=== PATIENT | male | born 1985 | race Two or more races ===

== ENCOUNTER 2024-10-11 17:44 | Emergency (ER) | payer MEDICAID, SELFPAY ==
[2024-10-11 18:22] VITALS: BP 177/94; PULSE 89; RESP 18; TEMP 37; O2SAT 95; BMI 35.9
--- NOTE | 2024-10-11 18:42 | EKG_ITS ---
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
--- NOTE | 2024-10-11 18:43 | XR_ITS ---
Examination: CT brain head without contrast. 2-D sagittal coronal reconstructions Date and time of exam:October 11, 2024, 1929 hours INDICATIONS: Onset headaches beginning 9 days ago CTDI: vol (mGy):48.3 DLP: (mGycm):943 Technique: Multiple CT axial sections of the brain have been obtained, 5 mm slice thickness. Contrast has not been administered. 2-D sagittal, coronal reconstructions have been obtained Low dose protocols were performed. One or more of the following dose reduction techniques were used; automated exposure control, adjustment of the mA and/or KV according to patient size, use of iterative reconstruction technique. Findings: No significant ventricular enlargement. Intra-axial or extra-axial hemorrhage density is not seen. No mass effect or midline shift Basal cisterns are not remarkable. Fourth ventricle is midline. Cranial vault intact. Impression: Negative for acute hemorrhage, mass effect or midline shift Advise clinical correlation and follow up accordingly
--- NOTE | 2024-10-11 18:43 | EDRME_ITS ---
Rapid Medical Screening Exam [facility] Arrival date/time: 10/11/24 17:44 39M with history of HTN (hasn't taken meds for 2 months) presents to ED with 1 day of SOUTH, CP, and SOB. Patient went to clinic and was sent here for elevated BP. Chief Complaint: General Adult/Misc Complain Vital signs: Vital Signs Temperature 98.6 F 10/11/24 18:22 Pulse Rate 89 10/11/24 18:22 Respiratory Rate 18 10/11/24 18:22 Blood Pressure 177/94 H 10/11/24 18:22 Pulse Oximetry (%) 95 10/11/24 18:22 Oxygen Delivery Method Room Air 10/11/24 18:22
--- NOTE | 2024-10-11 18:43 | XR_ITS ---
Examination: PA chest single view TECHNIQUE: Upright PA chest single view Exam date and time: October 11, 2024, 1924 hours INDICATIONS: High blood pressure chest pain beginning 3 days ago. FINDINGS: Normal heart size. No pneumonia or pulmonary edema. Osseous structures are intact IMPRESSION: No active disease
[2024-10-11 19:14] LABS: Basophils % (Auto) 0 % (0-2.5); Eosinophils % (Auto) 0 % (0-10); Hematocrit 46.5 % (41.0-53.0); Hemoglobin 16.3 g/dL (13.5-16.0); Immature Granulocytes % (Auto) 0 % (0-0); Immature Granulocytes Auto 0.01 Thou/mm3 (0.00-0.00); Lymphocytes # (Auto) 1.1 Thou/mm3 (1.0-4.8); Lymphocytes % (Auto) 15 % (10-50); Mean Corpuscular HGB Conc 35.1 g/dl (31.0-37.0); Mean Corpuscular Hemoglobin 30.8 pg (25.0-35.0); Mean Corpuscular Volume 88 fL (80-100); Monocytes # (Auto) 0.4 Thou/mm3 (0.0-0.8); Monocytes % (Auto) 6 % (0-12); Neutrophils # (Auto) 5.8 Thou/mm3 (1.8-7.7); Neutrophils % (Auto) 79 % (37-80); Nucleated Red Blood Cell % 0 /100 WBC (0); Platelet Count 147 Thou/mm3 (140-440); RDW Standard Deviation 41.4 fL (35.1-43.9); White Blood Count 7.4 Thou/mm3 (3.8-10.6)
[2024-10-11 19:40] LABS: Alanine Aminotransferase 36 U/L (10-49); Albumin, Serum 4.7 gm/dL (3.5-5.0); Albumin/Globulin Ratio 1.3 (1.2-2.2); Alkaline Phosphatase 150 U/L (46-116); Anion Gap 11 (7-16); Aspartate Amino Transferase 38 U/L (0-34); BUN/Creatinine Ratio 14 Ratio (12-20); Blood Urea Nitrogen 10 mg/dL (9-23); Calcium 9.8 mg/dL (8.3-10.6); Calcium (Corrected) 9.8 mg/dL (8.5-10.1); Carbon Dioxide 24.7 mMol/L (20.0-31.0); Chloride 105 mMol/L (98-107); Creatinine (Component) 0.7 mg/dL (0.6-1.3); Estimated Creatinine Clearance 125.8 mL/min (>60); Globulin 3.6 gm/dL (2.3-3.5); Glucose 104 mg/dL (74-106); Osmolality,Calculated 280 (275-295); Potassium 3.7 mMol/L (3.4-5.1); Sodium 141 mMol/L (136-145); Total Protein 8.3 gm/dL (5.7-8.2); Troponin I < 0.020 ng/mL (0.0-0.045); eGFR > 60 See Note
[2024-10-11 20:58] LABS: Collection Type, Urine Clean Catch; RBC,Urine 0 /hpf (0-3); WBC,Urine 0 /hpf (0-5)
[2024-10-11 21:16] LABS: Bilirubin,Urine Negative (Negative); Blood,Urine Negative (Negative); Clarity,Urine Clear (Clear/Hazy); Color,Urine Lt-Yellow (Lt Yel-Yel); Glucose, Urine Negative (Negative); Ketones,Urine 1+ (Negative); Leukocyte Esterase,Urine Negative (Negative); Nitrite,Urine Negative (Negative); Protein,Urine Trace (Neg - Trace); Specific Gravity,Urine 1.013 (1.001-1.035); Squamous Epithelial Cell,Urine 1 /hpf (0-5); Urobilinogen,Urine Negative mg/dL (0.0-1.0)
[2024-10-11 21:20] LABS: Amphetamine/Methamp Scrn,U Negative (Negative); Barbiturate Screen,Urine Negative (Negative); Benzodiazepines Screen,Urine Negative (Negative); Benzoylecgonine Screen, Ur Negative (Negative); Fentanyl Screen,Urine Negative (Negative); Opiate Screen,Urine Negative (Negative); THC Screen,Urine Negative (Negative)
[2024-10-11 22:14] VITALS: BP 164/104; BP 165/101; PULSE 86; RESP 18; TEMP 36.7; O2SAT 97
--- NOTE | 2024-10-11 22:52 | PD.EDADULT ---
ED General RME/HPI General Chief complaint: General Adult/Misc Complain Stated complaint: SENT BY [facility] FOR HIGH BP - 159/100 Source: patient Arrival date/time: 10/11/24 17:44 Mode of arrival: ambulatory Limitations: no limitations RME / HPI RME / HPI narrative: 10/11/24 17:44 39M with history of HTN (hasn't taken meds for 2 months) presents to ED with 1 day of SOUTH, CP, and SOB. Patient went to clinic and was sent here for elevated BP. Dr. Yung?s Main ED Evaluation: Related Data Allergies Allergy/AdvReac Type Severity Reaction Status Date / Time No Known Allergies Allergy Verified 10/11/24 17:50 Review of Systems Review of Systems Systems Reviewed: All systems reviewed, normal except as documented Past Medical History Social History SMOKING STATUS: Former smoker ED Exam General Limitations: Present no limitations General appearance: Present alert and in no apparent distress Head Head exam: Present atraumatic Eye Eye exam: Present normal appearance, PERRL and EOMI ENT ENT exam: Present normal exam, normal oropharynx and mucous membranes moist Neck Neck exam: Present normal inspection, full ROM and trachea midline Chest Chest inspection: Present normal inspection and symmetric chest wall rise Respiratory Respiratory exam: Present normal lung sounds bilaterally Cardiovascular Cardiovascular exam: Present regular rate, normal rhythm and normal heart sounds Abdominal Exam Abdominal exam: Present soft and normal bowel sounds Extremities Exam Extremities exam: Present normal inspection and full ROM Back Exam Back exam: Present normal inspection and full ROM Neurological Exam Neurological exam: Present alert, oriented X3 and CN II-XII intact Psychiatric Psychiatric exam: Present normal affect and normal mood Skin Skin exam: Present warm, dry, intact and normal color Course Quality Measures none Orders Category Date Time Status EKG (ED ONLY) *Do not use* NOW Care 10/11/24 18:[address] head/brain wo con Stat Exams 10/11/24 18:43 Completed EKG (ED Only) Stat Exams 10/11/24 18:42 Draft XR chest 1V portable Stat Exams 10/11/24 18:43 Completed CBC Stat Lab 10/11/24 18:55 Completed Comprehensive Metabolic Panel Stat Lab 10/11/24 18:55 Completed Drug Screen,Urine Stat Lab 10/11/24 20:30 Completed Troponin I Stat Lab 10/11/24 18:55 Completed Urinalysis Stat Lab 10/11/24 20:30 Completed Vital Signs Vital signs: Vital Signs Temperature 98.6 F 10/11/24 18:22 Pulse Rate 89 10/11/24 18:22 Respiratory Rate 18 10/11/24 18:22 Blood Pressure 177/94 H 10/11/24 18:22 Pulse Oximetry (%) 95 10/11/24 18:22 Oxygen Delivery Method Room Air 10/11/24 18:22 [facility] Patient data External records reviewed:: [facility] previous records Clinical information provided by:: patient Social determinants that could affect healthcare access:: none Patient has the following chronic illnesses:: see PMH How is presenting disease/condition affected by chronic disease/condition?: uneffected by Evaluation data The following diagnostics were reviewed and interpreted by me:: lab results, radiology exam(s) and EKG tracing(s) Lab and/or radiology exams considered but not ordered:: na Interpretation Summary: Examination: PA chest single view TECHNIQUE: Upright PA chest single view Exam date and time: October 11, 2024, 1923 hours INDICATIONS: High blood pressure chest pain beginning 3 days ago. FINDINGS: Normal heart size. No pneumonia or pulmonary edema. Osseous structures are intact IMPRESSION: No active disease Dictated By: Grant Galindo MD Examination: CT brain head without contrast. Date and time of exam:October 11, 2024, 1928 hours INDICATIONS: Onset headaches beginning 9 days ago Findings: No significant ventricular enlargement. Intra-axial or extra-axial hemorrhage density is not seen. No mass effect or midline shift Basal cisterns are not remarkable. Fourth ventricle is midline. Cranial vault intact. Impression: Negative for acute hemorrhage, mass effect or midline shift Advise clinical correlation and follow up accordingly Dictated By: Grant Galindo MD Medications Medications considered but not ordered:: na Medical Decision Making MDM Narrative MDM Narrative: Scribe Attestation: Patricia Butler, am scribing for and in the presence of Dr. Yung. Provider Notation: Although this document has been carefully reviewed, there may still be some phonetic and other typographical errors. These errors are purely grammatical due to imperfections in the software program and should not be construed in any way to compromise the substance of the patient's medical care during this visit. Medical Records Medical records reviewed: Yes I reviewed the patient's medical records. Lab Data Lab results reviewed: Yes I reviewed the patient's lab results. 10/11/24 18:55 10/11/24 18:55 Labs: Lab Results 10/11/24 10/11/24 Range/Units 18:55 20:30 WBC 7.4 (3.8-10.6) Thou/mm3 RBC 5.30 (4.50-5.90) Miln/mm3 Hgb 16.3 H (13.5-16.0) g/dL Hct 46.5 (41.0-53.0) % MCV 88 (80-100) fL MCH 30.8 (25.0-35.0) pg MCHC 35.1 (31.0-37.0) g/dl RDW Std Deviation 41.4 (35.1-43.9) fL Plt Count 147 (140-440) Thou/mm3 Neut % (Auto) 79 (37-80) % Lymph % (Auto) 15 (10-50) % [place] % (Auto) 6 (0-12) % Eos % (Auto) 0 (0-10) % Baso % (Auto) 0 (0-2.5) % Neut # (Auto) 5.8 (1.8-7.7) Thou/mm3 Lymph # (Auto) 1.1 (1.0-4.8) Thou/mm3 [place] # (Auto) 0.4 (0.0-0.8) Thou/mm3 Eos # (Auto) 0.0 (0.0-0.5) Thou/mm3 Baso # (Auto) 0.0 (0.0-0.2) Thou/mm3 Immature Gran # (Auto) 0.01 H (0.00-0.00) Thou/mm3 Absolute Nucleated RBC 0.00 (0.00-0.00) Thou/mm3 Immature Gran % 0 (0-0) % Nucleated RBC % 0 (0) /100 WBC Sodium 141 (136-145) mMol/L Potassium 3.7 (3.4-5.1) mMol/L Chloride 105 (98-107) mMol/L Carbon Dioxide 24.7 (20.0-31.0) mMol/L Anion Gap 11 (7-16) BUN 10 (9-23) mg/dL Creatinine 0.7 (0.6-1.3) mg/dL Estim Creat Clear Calc 125.8 (>60) mL/min eGFR > 60 (60 - ) See Note BUN/Creatinine Ratio 14 (12-20) Ratio Glucose 104 (74-106) mg/dL Calculated Osmolality 280 (275-295) Calcium 9.8 (8.3-10.6) mg/dL Corrected Calcium 9.8 (8.5-10.1) mg/dL Total Bilirubin 1.0 (0.3-1.2) mg/dL AST 38 H (0-34) U/L ALT 36 (10-49) U/L Alkaline Phosphatase 150 H (46-116) U/L Troponin I < 0.020 (0.0-0.045) ng/mL Total Protein 8.3 H (5.7-8.2) gm/dL Albumin 4.7 (3.5-5.0) gm/dL Globulin 3.6 H (2.3-3.5) gm/dL Albumin/Globulin Ratio 1.3 (1.2-2.2) Ur Collection Type Clean Catch Urine Color Lt-Yellow (Lt Yel-Yel) Urine Clarity Clear (Clear/Hazy) Urine pH 7.0 (5.0-7.0) Ur Specific [place] 1.013 (1.001-1.035) Urine Protein Trace (Neg - Trace) Urine Glucose (UA) Negative (Negative) Urine Ketones 1+ A (Negative) Urine Blood Negative (Negative) Urine Nitrite Negative (Negative) Urine Bilirubin Negative (Negative) Urine Urobilinogen (Auto) Negative (0.0-1.0) mg/dL Ur Leukocyte Esterase Negative (Negative) Urine RBC 0 (0-3) /hpf Urine WBC 0 (0-5) /hpf Ur Squamous Epith Cells 1 (0-5) /hpf Urine Bacteria None (None) Urine Opiates Screen Negative (Negative) Urine Fentanyl Screen Negative (Negative) Ur Barbiturates Screen Negative (Negative) U Amphetamin/Meth Scrn Negative (Negative) U Benzodiazepines Scrn Negative (Negative) U Cocaine Metab Screen Negative (Negative) U Marijuana (THC) Screen Negative (Negative) Radiology Data Radiology results reviewed: Yes I reviewed the patient's radiology results. Discharge Plan Prescriptions/Referrals Referrals: No Primary/Family,Physician [Primary Care Provider] - In 1 week Patient/Caregiver Discharge Instructions Print Language: Nepali
--- NOTE | 2024-10-11 23:05 | PD.EDADULT ---
ED General RME/HPI General Chief complaint: General Adult/Misc Complain Stated complaint: SENT BY [facility] FOR HIGH BP - 159/100 Time Seen by Provider: 10/11/24 22:58 Arrival date/time: 10/11/24 17:44 RME / HPI RME / HPI narrative: 39M with history of HTN (hasn't taken meds for 2 months) presents to ED with 1 day of SOUTH, CP, and SOB. Patient went to clinic and was sent here for elevated BP. Severity of symptoms mild. Denies any other complaints patient is ambulatory. Related Data Previous Rx's ?Medication ?Instructions ?Recorded nifedipine 30 mg tablet,extended 30 mg PO QDAY #30 tabs 10/11/24 release 24 hr (Procardia XL) Allergies Allergy/AdvReac Type Severity Reaction Status Date / Time No Known Allergies Allergy Verified 10/11/24 17:50 Review of Systems Review of Systems Narrative Review of Systems: Review of system reviewed and within normal limits except mentioned in HPI ED Exam Narrative Physical exam: VITAL SIGNS: Reviewed. GENERAL APPEARANCE: Alert and interactive, follows commands, no acute distress, HEAD AND FACE: Non-traumatic. ENT: PERRL, pink conjunctivitis, eyelid no trauma, Mucous membrane moist. NECK: Supple, nontender, no nuchal rigidity. CHEST: No tenderness, no crepitus, no paradoxical movement, no retractions. LUNGS: Clear, well ventilated, symmetric, no rales, no wheezing, no ronchi, no stridor, good breath sounds bilaterally. HEART: Regular rate, regular rhythm, no murmur, no gallops. ABDOMEN: Soft, positive bowel sounds, nondistended, no guarding, nontender, no rebound, no masses, RECTAL: Deferred. GENITAL: Deferred. NEUROLOGICAL: Gross motor function intact sensory function intact, Appropriate for age. MUSCULOSKELETAL: low back nontender, full range of motion. EXTREMITIES: Nontender, full range of motion. SKIN: Color pink, dry, no rash, no lacerations, no abrasions, no contusions. LYMPHATICS: Deferred. Course Quality Measures none Orders Category Date Time Status EKG (ED ONLY) *Do not use* NOW Care 10/11/24 18:[address] head/brain wo con Stat Exams 10/11/24 18:43 Completed EKG (ED Only) Stat Exams 10/11/24 18:42 Draft XR chest 1V portable Stat Exams 10/11/24 18:43 Completed CBC Stat Lab 10/11/24 18:55 Completed Comprehensive Metabolic Panel Stat Lab 10/11/24 18:55 Completed Drug Screen,Urine Stat Lab 10/11/24 20:30 Completed Troponin I Stat Lab 10/11/24 18:55 Completed Urinalysis Stat Lab 10/11/24 20:30 Completed Vital Signs Vital signs: Vital Signs Temperature 98.6 F 10/11/24 18:22 Pulse Rate 89 10/11/24 18:22 Respiratory Rate 18 10/11/24 18:22 Blood Pressure 177/94 H 10/11/24 18:22 Pulse Oximetry (%) 95 10/11/24 18:22 Oxygen Delivery Method Room Air 10/11/24 18:22 MDM Patient data External records reviewed:: None Clinical information provided by:: none Social determinants that could affect healthcare access:: none Patient has the following chronic illnesses:: Hypertension How is presenting disease/condition affected by chronic disease/condition?: exacerbated by Evaluation data The following diagnostics were reviewed and interpreted by me:: lab results, radiology exam(s) and EKG tracing(s) Lab and/or radiology exams considered but not ordered:: None Interpretation Summary: See results in MDM Medications Medications considered but not ordered:: None Medication administrations:: None Consultations Consultation(s) initiated? (list below): No Diagnosis Differential Diagnosis ED Complaint MDM: Hypertension, ACS, headache, chest pain intracranial bleed Most likely diagnosis given after review of the tests above:: Hypertension not on any medication Admission Indicated Admission indicated?: not indicated Explain why admission is indicated or not indicated:: none Admission Request Was there a request for admission?: No Disposition Plan Disposition Plan: Discharge Discharge Attestation Discharge Attestation: The patient was given an opportunity to ask questions and understood the discharge instructions. Discharge instructions specifically effects, indications for sooner follow up or return to the emergency department, and the expected course of current diagnosis. Patient condition: Stable Medical Decision Making MDM Narrative MDM Narrative: 39M with history of HTN (hasn't taken meds for 2 months) presents to ED with 1 day of SOUTH, CP, and SOB. Patient went to clinic and was sent here for elevated BP. Severity of symptoms mild. Denies any other complaints patient is ambulatory. Patient's laboratory workup, all came back unremarkable. Patient's blood pressure was noted to be 164/[address] scan of the head came back unremarkable. I personally reviewed and interpreted the x-ray of this patient. There is no acute abnormalities found, no infiltrates no pneumothorax no hemothorax normal chest x-ray. Review of other structures was without significant abnormal findings also. I additionally reviewed the radiologist report and agree with the interpretation. EKG showed sinus rhythm, ventricular rate of 88 bpm, no ST segment elevation depression noted. Differential Diagnosis Differential Diagnosis: Hypertension, ACS, headache, chest pain intracranial bleed Lab Data 10/11/24 18:55 10/11/24 18:55 Labs: Lab Results 10/11/24 10/11/24 Range/Units 18:55 20:30 WBC 7.4 (3.8-10.6) Thou/mm3 RBC 5.30 (4.50-5.90) Miln/mm3 Hgb 16.3 H (13.5-16.0) g/dL Hct 46.5 (41.0-53.0) % MCV 88 (80-100) fL MCH 30.8 (25.0-35.0) pg MCHC 35.1 (31.0-37.0) g/dl RDW Std Deviation 41.4 (35.1-43.9) fL Plt Count 147 (140-440) Thou/mm3 Neut % (Auto) 79 (37-80) % Lymph % (Auto) 15 (10-50) % [place] % (Auto) 6 (0-12) % Eos % (Auto) 0 (0-10) % Baso % (Auto) 0 (0-2.5) % Neut # (Auto) 5.8 (1.8-7.7) Thou/mm3 Lymph # (Auto) 1.1 (1.0-4.8) Thou/mm3 [place] # (Auto) 0.4 (0.0-0.8) Thou/mm3 Eos # (Auto) 0.0 (0.0-0.5) Thou/mm3 Baso # (Auto) 0.0 (0.0-0.2) Thou/mm3 Immature Gran # (Auto) 0.01 H (0.00-0.00) Thou/mm3 Absolute Nucleated RBC 0.00 (0.00-0.00) Thou/mm3 Immature Gran % 0 (0-0) % Nucleated RBC % 0 (0) /100 WBC Sodium 141 (136-145) mMol/L Potassium 3.7 (3.4-5.1) mMol/L Chloride 105 (98-107) mMol/L Carbon Dioxide 24.7 (20.0-31.0) mMol/L Anion Gap 11 (7-16) BUN 10 (9-23) mg/dL Creatinine 0.7 (0.6-1.3) mg/dL Estim Creat Clear Calc 125.8 (>60) mL/min eGFR > 60 (60 - ) See Note BUN/Creatinine Ratio 14 (12-20) Ratio Glucose 104 (74-106) mg/dL Calculated Osmolality 280 (275-295) Calcium 9.8 (8.3-10.6) mg/dL Corrected Calcium 9.8 (8.5-10.1) mg/dL Total Bilirubin 1.0 (0.3-1.2) mg/dL AST 38 H (0-34) U/L ALT 36 (10-49) U/L Alkaline Phosphatase 150 H (46-116) U/L Troponin I < 0.020 (0.0-0.045) ng/mL Total Protein 8.3 H (5.7-8.2) gm/dL Albumin 4.7 (3.5-5.0) gm/dL Globulin 3.6 H (2.3-3.5) gm/dL Albumin/Globulin Ratio 1.3 (1.2-2.2) Ur Collection Type Clean Catch Urine Color Lt-Yellow (Lt Yel-Yel) Urine Clarity Clear (Clear/Hazy) Urine pH 7.0 (5.0-7.0) Ur Specific [place] 1.013 (1.001-1.035) Urine Protein Trace (Neg - Trace) Urine Glucose (UA) Negative (Negative) Urine Ketones 1+ A (Negative) Urine Blood Negative (Negative) Urine Nitrite Negative (Negative) Urine Bilirubin Negative (Negative) Urine Urobilinogen (Auto) Negative (0.0-1.0) mg/dL Ur Leukocyte Esterase Negative (Negative) Urine RBC 0 (0-3) /hpf Urine WBC 0 (0-5) /hpf Ur Squamous Epith Cells 1 (0-5) /hpf Urine Bacteria None (None) Urine Opiates Screen Negative (Negative) Urine Fentanyl Screen Negative (Negative) Ur Barbiturates Screen Negative (Negative) U Amphetamin/Meth Scrn Negative (Negative) U Benzodiazepines Scrn Negative (Negative) U Cocaine Metab Screen Negative (Negative) U Marijuana (THC) Screen Negative (Negative) Discharge Plan Plan Patient Disposition: HOME (Self Care) Disposition Comment: stable Prescriptions/Referrals Prescriptions/Med Rec: New nifedipine [Procardia XL] 30 mg tablet extended release 24hr 30 mg PO QDAY Qty: 30 0RF Referrals: No Primary/Family,Physician [Primary Care Provider] - In 1 week Problem List Clinical Impression: Hypertension Patient/Caregiver Discharge Instructions Discharge Activity: activity as tolerated Education Materials: ED High Blood Pressure ... Additional Instructions: Thank you for the opportunity for serving you today. You are stable for discharged . You are advised to: Follow-up with your PCP in 1 to 2 days Return to ED for worsening of symptoms Increase oral fluids Take medication as prescribed Print Language: Surinamese Stand Alone Forms: Lela Award Info., Patient Portal Info Letter PA/BRYANNA Supervising Physician ARETHA/BRYANNA Supervising Physician: MD Dilshad
== END 2024-10-11 23:47 | disposition home or self-care (01) ==
PROVIDERS: Physician Assistant; Emergency Provider Emergency Medicine
DX: R51.9 Headache, unspecified (principal); I10 Essential (primary) hypertension
CPT/HCPCS: 36415; 70450; 71045; 80053; 80307; 81001; 84484; 85025; 93005; 99284

== ENCOUNTER 2025-01-17 10:57 | Emergency (ER) | payer MEDICAID, SELFPAY ==
[2025-01-17 11:05] VITALS: BP 157/96; PULSE 94; RESP 18; TEMP 37.2; O2SAT 96; BMI 35.2
--- NOTE | 2025-01-17 11:25 | XR_ITS ---
Examination: PA lateral chest 2 views TECHNIQUE: Upright PA lateral chest 2 views Date and time: January 17, 2025 1146 hours Comparison October 11, 2024 INDICATIONS: Coughing 3 months. FINDINGS: Extensive pneumonia in the left upper lobe Normal heart size Right lung clear IMPRESSION: Extensive pneumonia left upper lobe
--- NOTE | 2025-01-17 11:59 | XR_ITS ---
Examination: CT chest, without intravenous contrast. Sagittal and coronal 2-D reconstructions. Exam date and time: January 17, 2025 1202 hours INDICATIONS: Coughing congestion shortness of breath 3 months CTDI:vol (mGy) 17.2 DLP: (mGycm) 554 Technique: Multiple 3.0 mm axial sections of the chest to been obtained. Bone and lung density settings are obtained. Sagittal and coronal 2-D reconstructions have been obtained. Low dose protocols were performed. One or more of the following dose reduction techniques were used; automated exposure control, adjustment of the mA and/or KV according to patient size, use of iterative reconstruction technique. Findings: No thoracic aortic aneurysmal dilatation Pulmonary artery segments are not enlarged. No mediastinal lymphadenopathy. 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
--- NOTE | 2025-01-17 12:01 | PD.EDRME ---
Rapid Medical Screening Exam RME Arrival date/time: 01/17/25 10:57 39-year-old male presents to the emergency department today for complaints of cough, congestion and sore throat Chief Complaint: Dental/Oral/Throat Time Seen by Provider: 01/17/25 11:22 Vital signs: Vital Signs Temperature 98.9 F 01/17/25 11:05 Pulse Rate 94 01/17/25 11:05 Respiratory Rate 18 01/17/25 11:05 Blood Pressure 157/96 H 01/17/25 11:05 Pulse Oximetry (%) 96 01/17/25 11:05 Oxygen Delivery Method Room Air 01/17/25 11:05
[2025-01-17 12:10] LABS: Strep A Rapid Negative (Negative)
[2025-01-17 12:20] LABS: Lactate (Lactic Acid) 1.2 mMol/L (0.4-2.0)
[2025-01-17 12:25] LABS: Basophils % (Auto) 0 % (0-2.5); Eosinophils # (Auto) 0.1 Thou/mm3 (0.0-0.5); Eosinophils % (Auto) 2 % (0-10); Immature Granulocytes % (Auto) 0 % (0-0); Immature Granulocytes Auto 0.03 Thou/mm3 (0.00-0.00); Lymphocytes % (Auto) 15 % (10-50); Mean Corpuscular HGB Conc 35.7 g/dl (31.0-37.0); Mean Corpuscular Hemoglobin 31.4 pg (25.0-35.0); Mean Corpuscular Volume 88 fL (80-100); Monocytes # (Auto) 0.6 Thou/mm3 (0.0-0.8); Monocytes % (Auto) 9 % (0-12); Neutrophils % (Auto) 74 % (37-80); Nucleated Red Blood Cell % 0 /100 WBC (0); Platelet Count 180 Thou/mm3 (140-440); RDW Standard Deviation 41.9 fL (35.1-43.9); Red Blood Count 4.78 Miln/mm3 (4.50-5.90); White Blood Count 6.8 Thou/mm3 (3.8-10.6)
[2025-01-17 12:52] LABS: Alanine Aminotransferase 26 U/L (10-49); Albumin, Serum 4.4 gm/dL (3.5-5.0); Albumin/Globulin Ratio 1.3 (1.2-2.2); Alkaline Phosphatase 156 U/L (46-116); Anion Gap 9 (7-16); Aspartate Amino Transferase 25 U/L (0-34); BUN/Creatinine Ratio 20 Ratio (12-20); Bilirubin,Total 0.7 mg/dL (0.3-1.2); Blood Urea Nitrogen 14 mg/dL (9-23); Calcium 9.2 mg/dL (8.3-10.6); Calcium (Corrected) 9.2 mg/dL (8.5-10.1); Carbon Dioxide 27.3 mMol/L (20.0-31.0); Chloride 103 mMol/L (98-107); Creatinine (Component) 0.7 mg/dL (0.6-1.3); Estimated Creatinine Clearance 124.3 mL/min (>60); Globulin 3.3 gm/dL (2.3-3.5); Glucose 106 mg/dL (74-106); Osmolality,Calculated 278 (275-295); Potassium 3.8 mMol/L (3.4-5.1); Procalcitonin 0.06 ng/ml (0.0-0.49); Sodium 139 mMol/L (136-145); Total Protein 7.7 gm/dL (5.7-8.2); eGFR > 60 See Note
[2025-01-17 13:38] LABS: Cocci Serology, IgM Negative (Negative)
--- NOTE | 2025-01-17 16:36 | EDNOTE_ITS ---
ED Asthma RME/HPI General Chief Complaint: Dental/Oral/Throat Stated Complaint: SOB X 2 weeks, sore throat X 2 weeks Time Seen by Provider: 01/17/25 11:22 Arrival date/time: 01/17/25 10:57 RME / HPI RME / HPI Narrative: 39-year-old male patient with significant history of hypertension, came in for evaluation regarding sore throat, cough, shortness of breath, chest pain, pain, and blood-tinged sputum's been ongoing for the last 2 weeks. Patient denies any night sweats denies any weight loss denies any fever denies any other complaints. Patient is ambulatory and satting normal on on room air. Related Data Previous Rx's ?Medication ?Instructions ?Recorded nifedipine 30 mg tablet,extended 30 mg PO QDAY #30 tab s 10/11/24 release 24 hr (Procardia XL) amoxicillin 875 mg-potassium 1 tab PO BID #14 tabs clavulanate 125 mg tablet doxycycline hyclate 100 mg capsule 100 mg PO BID #14 c aps 01/17/25 ibuprofen 800 mg tablet 800 mg PO Q8H PRN pain #30 t abs 01/17/25 Allergies Allergy/AdvReac Type Severity Reaction Status Date / Time No Known Allergies Allergy Verified 01/17/25 11:03 Review of Systems Review of Systems Narrative Review of Systems: Review of system reviewed and within normal limits except mentioned in HPI ED Exam Narrative Physical exam: VITAL SIGNS: Reviewed. GENERAL APPEARANCE: Alert and interactive, follows commands, no acute distress, HEAD AND FACE: Non-traumatic. ENT: PERRL, pink conjunctivitis, eyelid no trauma, Mucous membrane moist. NECK: Supple, nontender, no nuchal rigidity. CHEST: No tenderness, no crepitus, no paradoxical movement, no retractions. LUNGS: Clear, well ventilated, symmetric, no rales, no wheezing, no ronchi, no stridor, good breath sounds bilaterally. HEART: Regular rate, regular rhythm, no murmur, no gallops. ABDOMEN: Soft, positive bowel sounds, nondistended, no guarding, nontender, no rebound, no masses, RECTAL: Deferred. GENITAL: Deferred. NEUROLOGICAL: Gross motor function intact sensory function intact, Appropriate for age. MUSCULOSKELETAL: low back nontender, full range of motion. EXTREMITIES: Nontender, full range of motion. SKIN: Color pink, dry, no rash, no lacerations, no abrasions, no contusions. LYMPHATICS: Deferred. Course Quality Measures none Orders Category Date Time Status Bedside Influenza A&B Antigen Test NOW Care 01/17/25 12:[address] chest wo con Stat Exams 01/17/25 11:59 Completed XR chest 2V Stat Exams 01/17/25 11:25 Completed Blood Culture (Lab) Stat Lab 01/17/25 12:10 Received CBC Stat Lab 01/17/25 12:10 Completed Cocci Serology IgM with reflex to IgG [Cocci Serology, Lab 01/17/25 12:11 Results Unk History] Stat Comprehensive Metabolic Panel Stat Lab 01/17/25 12:10 Completed Lactate (Lactic Acid) Stat Lab 01/17/25 12:10 Completed Procalcitonin Stat Lab 01/17/25 12:10 Completed Strep A Rapid Stat Lab 01/17/25 11:34 Completed Amoxicillin/Pot Clav 875 [Augmentin 875] Med 01/17/25 16:36 Once 1 tab PO X1 ONE Doxycycline [Vibramycin] Med 01/17/25 16:36 Once 100 mg PO X1 ONE Vital Signs Vital signs: Vital Signs Temperature 98.9 F 01/17/25 11:05 Pulse Rate 94 01/17/25 11:05 Respiratory Rate 18 01/17/25 11:05 Blood Pressure 157/96 H 01/17/25 11:05 Pulse Oximetry (%) 96 01/17/25 11:05 Oxygen Delivery Method Room Air 01/17/25 11:05 Asthma MDM Narrative MDM Narrative:: 39-year-old male patient with significant history of hypertension, came in for evaluation regarding sore throat, cough, shortness of breath, chest pain, pain, and blood-tinged sputum's been ongoing for the last 2 weeks. Patient denies any night sweats denies any weight loss denies any fever denies any other complaints. Patient is ambulatory and satting normal on on room air. Laboratory workup all came back with no leukocytosis, chest x-ray showed extensive pneumonia on the left upper lobe. Tested negative for strep cocci IgM is negative also. Patient was noted to be satting 96% on room air. Patient will be discharged h ome on Doxy and Augmentin. Patient data External records reviewed:: None Clinical information provided by:: patient Social determinants that could affect healthcare access:: none Patient has the following chronic illnesses:: Hypertension How is presenting disease/condition affected by chronic disease/condition?: uneffected by Evaluation data The following diagnostics were reviewed and interpreted by me:: lab results and radiology exam(s) Lab and/or radiology exams considered but not ordered:: None Interpretation Summary: See results in [facility] Medications / Prescriptions Medications or Prescriptions considered but not ordered:: None Medication administrations:: Medication Administration History Amoxicillin/Clavulanate Potassium (Amoxicillin/Pot Clav 875 Tablet) 1 tab PO X1 ONE Stop: 01/17/25 16:37 Doxycycline Hyclate (Doxycycline 100 Mg Tablet) 100 mg PO X1 ONE Stop: 01/17/25 16:37 Consultations Consultation(s) initiated? (list below): No Diagnosis Differential diagnosis asthma: Acute exacerbation, Pneumonia and Pneumothorax Most likely diagnosis given after review of the tests above:: Pneumonia Admission Indicated Admission indicated?: not indicated Explain why admission is indicated or not indicated:: Stable Admission Request Was there a request for admission?: No Disposition Plan Disposition Plan: Discharge Discharge Attestation Discharge Attestation: The patient and all family members were given an opportunity to ask questions and understood the discharge instructions. Discharge instructions specifically effects, indications for sooner follow up or return to the emergency department, and the expected course of current diagnosis. Patient condition: Stable Discharge Plan Plan Patient Disposition: HOME (Self Care) Discharge Disposition comment: Stable Prescriptions/Referrals Prescriptions/Med Rec: New amoxicillin-pot clavulanate 875-125 mg tablet 1 tab PO BID Qty: 14 0RF doxycycline hyclate 100 mg capsule 100 mg PO BID Qty: 14 0RF ibuprofen 800 mg tablet 800 mg PO Q8H PRN (Reason: pain) Qty: 30 0RF No Action nifedipine [Procardia XL] 30 mg tablet extended release 24hr 30 mg PO QDAY Qty: 30 0RF Referrals: No Primary/Family,Physician [Primary Care Provider] - In 1 week Problem List Clinical Impression: Pneumonia Patient/Caregiver Discharge Instructions Discharge Activity: activity as tolerated Education Materials: ED Pneumonia (Adult) Additional Instructions: Thank you for the opportunity for serving you today. You are stable for d ischarged . You are advised to: Follow-up with your PCP in 1 to 2 days Return to ED for worsening of symptoms Increase oral fluids Take medication as prescribed Print Language: Kiswahili Stand Alone Forms: [employer] Award Info., Patient Portal Info Letter PA/SPOOL WORKER Supervising Physician PA/SPOOL WORKER Supervising Physician: MD Jonathon
[2025-01-17] MEDS: DOXYCYCLINE 100 MG TABLET PO (16:55)
[2025-01-17] MEDS: AMOXICILLIN/POT CLAV 875 TABLET 1 TAB PO (16:55)
[2025-01-18 12:40] LABS: Cocci Serology, IgG Negative (Negative)
== END 2025-01-17 17:38 | disposition home or self-care (01) ==
PROVIDERS: Nurse Practitioner Primary Care; Emergency Provider Emergency Medicine
DX: J18.9 Pneumonia, unspecified organism (principal)
CPT/HCPCS: 36415; 71046; 71250; 80053; 83605; 84145; 85025; 86331; 86635; 87040; 87651; 99284; A9270